=== PATIENT | female | born 1950 | race Caucasian/White ===

== ENCOUNTER 2021-10-05 13:35 | Outpatient (REF) | payer MEDICARE, SELFPAY ==
--- NOTE | ~2021-10-05 | MM_ITS ---
EXAMINATION: MM SCREENING DIGITAL BREAST TOMOSYNTHESIS, BILATERAL CLINICAL INFORMATION: Screening. Asymptomatic. Breast reduction mammoplasty 2018. Family history breast cancer, mother. The lifetime risk of breast cancer based on the Tyrer-Cuzick Model is 8%. COMPARISON: Outside mammography: 08/24/2020, 10/25/2017 ([facility]). TECHNIQUE: Digital breast tomosynthesis is performed in both the craniocaudal and mediolateral oblique views along with computer-aided detection (CAD). Synthesized 2D images are generated from the tomosynthesis. Additional left MLO view is provided. FINDINGS: There are scattered areas of fibroglandular density (ACR BI-RADS breast composition Category b). Parenchymal pattern is similar to prior exam. Again, there is minor scarring consistent with the reduction mammoplasty. There are increased dystrophic calcifications in both breasts. Biopsy clip marker again noted anterior central right breast. Neither breast shows interval significant mass or architectural abnormality or abnormal calcifications. The axilla are unremarkable. No significant changes. MM/MM tomosynthesis screening BI IMPRESSION: No significant changes from prior outside exam. ASSESSMENT: BI-RADS 2: Benign RECOMMENDATION: Routine annual mammography screening. This patient's information was entered into a reminder system with a target due date for their next mammogram.
== END 2021-10-05 13:36 | disposition home or self-care (01) ==
LOC: HO.MAMMO 13:35
PROVIDERS: Visit Provider Advanced Practice Midwife
DX: Z12.31 Encounter for screening mammogram for malignant neoplasm of breast (principal)
CPT/HCPCS: 77063; 77067

== ENCOUNTER 2021-10-14 10:07 | Outpatient (REF) | payer MEDICARE, SELFPAY ==
[2021-10-14 12:51] LABS: MRSA Nasal PCR NEGATIVE (Negative); SA Nasal PCR NEGATIVE (Negative)
== END 2021-10-14 10:08 | disposition home or self-care (01) ==
LOC: HO.LAB 10:07
PROVIDERS: Visit Provider Orthopaedic Surgery
DX: Z22.322 Carrier or suspected carrier of Methicillin resistant Staphylococcus aureus (principal)
CPT/HCPCS: 87081; 87640; 87641

== ENCOUNTER 2022-04-17 12:48 | Outpatient (REF) | payer MEDICARE, SELFPAY ==
--- NOTE | ~2022-04-17 | XR_ITS ---
EXAMINATION: XR KNEE, LEFT CLINICAL INFORMATION: Arthritis COMPARISON: None TECHNIQUE: Four views of the left knee. FINDINGS: The bones appear osteopenic. Bone alignment is normal. No fracture or dislocation is seen. There are degenerative changes at the patellofemoral joint with small osteophytes. There is an osteophyte at the quadriceps tendon insertion to the patella. There is no joint effusion. XR/XR knee LT 4V IMPRESSION: Mild degenerative changes at the patellofemoral joint and osteopenia.
== END 2022-04-17 12:49 | disposition home or self-care (01) ==
LOC: HO.XRAY 12:48
PROVIDERS: PCP Nurse Practitioner Family; Visit Provider Internal Medicine Rheumatology
DX: M17.12 Unilateral primary osteoarthritis, left knee (principal)
CPT/HCPCS: 73564

== ENCOUNTER 2025-08-24 10:23 | Emergency (ER) | payer MEDICARE, SELFPAY ==
--- NOTE | ~2025-08-24 | XR_ITS ---
EXAMINATION: XR CHEST 1 VIEW HISTORY: cp COMPARISON: There are no prior studies available for comparison. FINDINGS: A single AP portable view of the chest performed at 10:56 AM is submitted. There is patchy airspace opacity in the right middle lobe, compatible with pneumonia. Left lung is clear. There is no pleural effusion, pneumothorax, or pulmonary vascular congestion. The heart is normal in size. There is degenerative disc disease of the spine. There is an old healed fracture deformity of the left humeral neck. XR/XR chest 1V IMPRESSION: Right middle lobe pneumonia. Follow-up is recommended to document resolution. Electronically signed by: Hussein Womack MD 08/24/2025 11:08 AM EDT
--- NOTE | 2025-08-24 10:25 | ECG_ITS ---
Test Reason : EPIGASTRIC/CP Blood Pressure : */* mmHG Vent. Rate : 64 BPM Atrial Rate : 64 BPM P-R Int : 208 ms QRS Dur : 80 ms QT Int : 420 ms P-R-T Axes : 16 3 55 degrees QTcB Int : 433 ms Normal sinus rhythm Normal ECG No previous ECGs available Referred By: Generic ED Physician Electronically Signed By: BALDEV ROMERO MD
--- NOTE | 2025-08-24 10:25 | ED.ABDPAIN ---
HPI - Abdominal Pain General Chief Complaint: Abdominal Pain Stated Complaint: EPIGASTRIC PAIN Time Seen by Provider: 08/24/25 10:25 Source: patient, EMS, RN notes reviewed and old records reviewed Mode of arrival: EMS History of Present Illness ED Provider: Bonnie Virgen PA-C HPI narrative: 74-year-old female with a past medical history HLD, HTN, presenting to the ED via EMS complaining of epigastric/chest tightening, shakiness, and back pressure x [employer] s/p having conversation with . Reports increasing stressors at home. States symptoms resolved upon EMS arrival, did take 324 ASA prior to EMS arrival. Denies symptoms at present. Denies associated nausea, lightheadedness/dizziness, weakness, pedal edema Related Data Previous Rx's ?Medication ?Instructions ?Recorded azithromycin 250 mg tablet 250 mg PO DAILY 4 days #4 tabs 08/24/25 cefpodoxime 200 mg tablet 200 mg PO BID 7 days #14 tabs 08/24/25 Allergies Allergy/AdvReac Type Severity Reaction Status Date / Time No Known Allergies Allergy Verified 08/24/25 10:35 Review of Systems Review of Systems Yes all other systems are reviewed and are negative Constitutional: Reports as per HPI [facility] Past Medical History Attestation statement: The following information was validated with the patient. Source: old records reviewed Social History Social History Advance Directives: No Advance Directives Information Provided: Yes Physical Exam ED Vital Signs: Vital Signs - 24 hr 08/24/25 10:30 08/24/25 11:46 08/24/25 14:49 Temperature 98.7 F 98.4 F 98.6 F Pulse Rate 69 71 68 Respiratory Rate 18 16 18 Blood Pressure 154/66 H 129/68 118/50 L Pulse Oximetry 99 100 99 Oxygen Delivery Method Room Air Room Air Room Air BMI result Body Mass Index 31.7 Const General: cooperative, healthy appearing and no acute distress Orientation/consciousness: patient oriented x3 Limitations: no limitations HENMT Head: Yes normal to inspection and Yes atraumatic Ears: hearing grossly normal bilaterally General nose exam: Normal external nose present Face and sinus: Yes normal facial exam Eyes General: appearance normal, both eyes and all related structures EOM: EOMs intact bilaterally Neck Neck: Yes normal visual inspection and Yes no meningeal signs Resp Effort & Inspection: normal respiratory effort and no respiratory distress Auscultation: clear to auscultation bilaterally, no rhonchi and no wheezes Cardio Rate: regular rate Heart sounds: S1 normal heart sound present and S2 normal heart sound present GI Inspection: Yes normal to inspection Palpation (GI): Soft to palpation, nontender, no guarding and not rigid Skin Rashes: no rashes Wounds: no wounds Neuro General: patient oriented x3, tone normal and no meningeal signs Cranial nerves: Yes CN's II-XII intact bilaterally Gait exam (Neuro): Normal gait present Extrem General: Yes normal to inspection, Yes no pedal edema and Yes no calf tenderness Course Course Course Narrative: -labs reassuring. Troponin x2 without significant rise > mi unlikely XR chest 1V IMPRESSION: Right middle lobe pneumonia. Follow-up is recommended to document resolution. > patient given dose of IV Rocephin and p.o. azithromycin in the ED Results discussed with patient including worrisome signs and symptoms and strict return precautions, and when to return to the emergency department. Patient has remained asymptomatic since ED arrival. They verbalized understanding and feel safe for discharge at this time. Medical Decision Making Medical Decision Making [facility] Narrative: 74-year-old female with a past medical history HLD, HTN, presenting to the ED via EMS complaining of epigastric/chest tightening, shakiness, and back pressure x [employer] s/p having conversation with . On exam vital signs stable, NAD, nontoxic appearing, asymptomatic at present. Concern for ACS vs anxiety/panic reaction. Lower suspicion for dissection/AAA, PE/DVT, CHF Plan: EKG, labs, CXR Please refer to course for remaining clinical decision making, interpretation of labs/imaging results, and discussions with consultants and/or family members. Differential Diagnosis Differential Diagnoses: The differential diagnosis associated with the presentation includes As above Admission/Observation Consideration of admission/observation: Escalation of care including admission/observation considered Lab Data [facility] Lab Attestation statement: I reviewed the patient's lab results. 08/24/25 10:46 08/24/25 10:46 Labs: Lab Results 08/24/25 08/24/25 Range/Units 10:46 13:53 WBC 8.1 (4.8-10.8) X10*3/uL RBC 4.61 (4.20-5.50) X10*6/uL Hgb 13.8 (12.0-16.0) g/dl Hct 41.2 (37.0-47.0) % MCV 89.4 (80.0-98.0) fL MCH 29.9 (27.0-33.0) pg MCHC 33.5 (31.0-35.0) g/dl RDW 12.3 (11.0-16.0) % Plt Count 201 (160-400) X10*3/uL MPV 10.1 (9.4-12.3) fL Immature Gran % (Auto) 0.2 (0.0-0.4) % Neut % (Auto) 68.6 (45-73) % Lymph % (Auto) 21.3 (20-40) % [place] % (Auto) 8.2 (2-11) % Eos % (Auto) 1.1 (0-4) % Baso % (Auto) 0.6 (0-2) % Lymph # (Auto) 1.7 (1.2-4.9) X10*3/uL [place] # (Auto) 0.7 (0.1-1.2) X10*3/uL Eos # (Auto) 0.1 (0.0-0.4) X10*3/uL Baso # (Auto) 0.1 (0.0-0.2) X10*3/uL Abs Immat Gran (auto) 0.02 (0.00-0.03) X10*3/uL Absolute Neuts (auto) 5.6 (2.0-8.3) x10*3/uL Absolute Nucleated RBC 0.000 (0.0-0.012) X10*3/uL Nucleated RBC % (auto) 0.0 (0.0-0.2) /100WBC Sodium 138 (135-145) mmol/L Potassium 3.7 (3.3-5.1) mmol/L Chloride 101 (96-108) mmol/L Carbon Dioxide 27 (22-29) mmol/L Anion Gap 14 (12-20) BUN 21 H (9-16) mg/dL Creatinine 1.01 (0.5-1.4) mg/dL Estim Creat Clear Calc 52.2 Estimated GFR 53 Random Glucose 80 (60-115) mg/dL Calcium 9.5 (8.4-10.2) mg/dL Magnesium 1.9 (1.6-2.6) mg/dL Total Bilirubin 0.6 (0.0-1.0) mg/dL Direct Bilirubin 0.3 (0.0-0.5) mg/dL AST 56 H (5-31) U/L ALT 37 H (0-31) U/L Alkaline Phosphatase 83 (39-117) U/L Troponin I High Sens 16.4 15.5 (<3.5-17.0) ng/L Total Protein 7.5 (6.5-8.0) g/dL Albumin 4.5 (3.5-5.0) g/dL Independent Interpretation I performed an independent interpretation of an: EKG (EKG normal sinus rhythm at a rate of 64. WI interval 208. No previous to compare with. no STEMI. QRS 80. QTC 433) and Plain X-Ray Radiology Impression Discussion of test interpretation with radiology: I have reviewed the radiologist's reading. Independent Historian Clinical information obtained from an independent historian. History obtained from or confirmed by: EMS External Record Review External record reviewed: Inpatient record, Office record, Outpatient record, Prior outpatient labs, Prior outpatient radiology, Primary care record and Outside ED record Tests considered The following testing was considered but not selected: As above Prescription Management I considered prescription management with: Pain Medication Chronic Conditions Patient?s care impacted by: Hypertension Social Determinants Patient?s care significantly limited by Social Determinants of Health including: Other Social Determinant of Health Medications Administered Discontinued Medications Generic Name Dose Route Start Last Admin Trade Name Freq PRN Reason Stop Dose Admin Azithromycin 500 mg 08/24/25 12:08 08/24/25 12:55 Azithromycin 500 Mg Tablet PO 08/24/25 12:09 500 mg ONCE ONE Administration Ceftriaxone Sodium 1 gm 08/24/25 12:08 08/24/25 12:55 Ceftriaxone Sodium 1 Gm Vial IVPUSH 08/24/25 12:09 1 gm ONCE ONE Administration Discharge Plan Discharge Clinical Impression: Pneumonia, Atypical chest pain Patient Disposition: Home, Self-Care Instructions: Chest Pain (ED), Pneumonia (ED) Additional Instructions: You have pneumonia. Azithromycin and cefpodoxime or antibiotics please take as prescribed until completion Continue all other home prescribed medications If your chest pain recurs, persists/worsens, you have shortness of breath, weakness, sweating, nausea or vomiting please return to the ED Prescriptions: New cefpodoxime 200 mg tablet 200 mg PO BID 7 Days Qty: 14 0RF Rx Instructions: must administer with a meal/food azithromycin 250 mg tablet 250 mg PO DAILY 4 Days Qty: 4 0RF Rx Instructions: start on day 2 of therapy Referrals: [facility] [Provider Group] - 1 week Jannette Talbert NP [Primary Care Provider, Internal Medicine] - 2 days Interventions: ED Discharge Assessment Last Done: 08/24/25 14:49 Discharge Date/Time: 08/24/25 14:50 Print Language: Yoruba
[2025-08-24 10:30] VITALS: BP 154/66; PULSE 69; RESP 18; TEMP 37.1; O2SAT 99; BMI 31.7
[2025-08-24 10:52] LABS: MANUAL DIFF FLAG NO
[2025-08-24 10:59] LABS: Hematocrit 41.2 % (37.0-47.0); Hemoglobin 13.8 g/dl (12.0-16.0); Imm Gran Abs Auto 0.02 X10*3/uL (0.00-0.03); Imm Gran Pct Auto 0.2 % (0.0-0.4); Lymphocytes Absolute Auto 1.7 X10*3/uL (1.2-4.9); Mean Corpuscular HGB Conc 33.5 g/dl (31.0-35.0); Mean Corpuscular Hemoglobin 29.9 pg (27.0-33.0); Mean Corpuscular Volume 89.4 fL (80.0-98.0); NRBC Abs Auto 0.000 X10*3/uL (0.0-0.012); NRBC Pct Auto 0.0 /100WBC (0.0-0.2); Platelet Count 201 X10*3/uL (160-400); Red Blood Count 4.61 X10*6/uL (4.20-5.50); White Blood Count 8.1 X10*3/uL (4.8-10.8)
[2025-08-24 11:08] LABS: Alanine Aminotransferase 37 U/L (0-31); Albumin Level 4.5 g/dL (3.5-5.0); Alkaline Phosphatase 83 U/L (39-117); Anion Gap 14 (12-20); Aspartate Amino Transferase 56 U/L (5-31); Blood Urea Nitrogen 21 mg/dL (9-16); Calcium 9.5 mg/dL (8.4-10.2); Carbon Dioxide 27 mmol/L (22-29); Chloride 101 mmol/L (96-108); Creatinine Clr Calc Pharmacy 52.2; Estimated Glomerular Filt Rate 53; Magnesium 1.9 mg/dL (1.6-2.6); Potassium 3.7 mmol/L (3.3-5.1); Sodium 138 mmol/L (135-145); Total Protein 7.5 g/dL (6.5-8.0)
[2025-08-24 11:14] LABS: Troponin-I High Sensitivity 16.4 ng/L (<3.5-17.0)
[2025-08-24 11:46] VITALS: BP 129/68; PULSE 71; RESP 16; TEMP 36.9; O2SAT 100
[2025-08-24 14:18] LABS: Troponin-I High Sensitivity 15.5 ng/L (<3.5-17.0)
[2025-08-24 14:49] VITALS: BP 118/50; PULSE 68; RESP 18; TEMP 37; O2SAT 99
== END 2025-08-24 14:50 | disposition home or self-care (01) ==
PROVIDERS: Physician Assistant; Emergency Provider Emergency Medicine; PCP Nurse Practitioner Family
DX: J18.9 Pneumonia, unspecified organism (principal); R10.9 Unspecified abdominal pain; I10 Essential (primary) hypertension; E78.5 Hyperlipidemia, unspecified
CPT/HCPCS: 36415; 71045; 80048; 80076; 83735; 84484; 85025; 87040; 93005; 96374; 99284; J0696

== ENCOUNTER → 2025-08-24 10:25 | Outpatient (BNV) | payer MEDICARE, SELFPAY | PROVIDERS: Emergency Provider Emergency Medicine; PCP Nurse Practitioner Family; Visit Provider Internal Medicine Cardiovascular Disease | DX: R10.13 Epigastric pain (principal) | CPT/HCPCS: 93010 ==

== ENCOUNTER → 2025-08-24 10:39 | Outpatient (BNV) | payer MEDICARE, SELFPAY | PROVIDERS: Emergency Provider Emergency Medicine; PCP Nurse Practitioner Family; Visit Provider Radiology Diagnostic Radiology | DX: J18.9 Pneumonia, unspecified organism (principal) | CPT/HCPCS: 71045 ==